=== PATIENT | female | born 1970 | race Caucasian/White ===

== ENCOUNTER 2016-06-05 13:39 | Emergency (ER) | payer OTHER ==
[~2016-06-05 13:39] MED LIST: ADVAIR 25028 BLISTE1 PO; ADVIL200 M3 PO; ALBUTEROL SULF8.5 G2 IH; ARIMIDEX1 M1 PO; AYR SALINE NASA14 GM; BENADRYL ITCH103 ML TOP; BENZONATATE200 M1 PO; BONIVA150 M1 PO; BUDESONIDE8.43 ML; CALCIPOTRIENE TOP; CALCIUM500 M3 PO; CEFPROZIL250 MG PO; CEPHALEXIN500 M1 PO; CIPRO750 M1 PO; CLEOCIN HCL300 M1 PO; CLINDAMYCIN HC150 M1 PO; CLINDAMYCIN HC300 M2 PO; CLOBETASOL PROP15 G2 TOP; CLOBETASOL PROP15 G2 TP; DOXEPIN HCL10 M1 PO; ELAVIL25 MG PO; HYDROCODON-ACE1 EAC8 PO; HYDROMORPHONE HC2 M1 PO; IBUPROFEN200 M2 PO; KEFLEX500 M4 PO; METRONIDAZOLE500 M3 PO; MUPIROCIN 2%; NORCO 5-325 TA1 EACH PO; OMEPRAZOLE MAGN20 M1 PO; OXYGEN INH; PAROEX473 ML MM; PERCOCET 5-3251 EACH PO; PREDNISONE20 MG PO; PROAIR HFA8.5 GM IH; PROAIR HFA8.5 GM INH; VALIUM10 M1 PO; VALIUM5 MG PO; VITAMIN D2; VITAMIN D31000 UNI3 PO; VITAMIN D31000 UNI4 PO; VITAMIN D400 UNI4 PO; ZITHROMAX250 M1 PO; ZOFRAN ODT4 MG/UDTAB PO; ZOFRAN ODT8 MG PO; [UNRECOGNIZED DRUG - OTHER]
[2016-06-05 14:39] LABS: BASO % 0.3 % (0-2); EOS % 4.7 % (0-7); EOSINOPHIL ABSOLUTE COUNT 0.6 tho/cmm (0.0-0.7); HCT-HEMATOCRIT 46.5 % (34.0-49.0); HGB-HEMOGLOBIN 15.7 gm/dl (12.0-15.5); IMMATURE GRANULOCYTES ABSOLUTE 0.03 tho/cmm (0-0.03); IMMATURE GRANULOCYTES PERCENT 0.3 % (0-0.3); LYMPH % 20.5 % (20-45); LYMPH ABSOLUTE COUNT 2.5 tho/cmm (0.8-4.5); MCH (MEAN CORPUSCULAR HGB) 32.2 pg (28.0-32.0); MCHC MEAN CORPUSCULAR HGB CONC 33.8 % (32.0-36.0); MCV (MEAN CELL VOLUME) 95.3 fl (82.0-96.0); MEAN PLATELET VOLUME 9.7 cmc (9.4-12.4); MONO % 8.7 % (0-12); NEUTROPHIL ABSOLUTE COUNT 7.8 tho/cmm (1.6-8.0); NEUTROPHIL-AUTOMATED 7.8 tho/cmm (1.6-8.0); NEUTROPHILS % 65.5 % (40-80); PLATELET COUNT 273 tho/cmm (150-450); RED BLOOD COUNT 4.88 mil/cmm (4.00-5.20); RED CELL DISTRIBUTION WIDTH 12.5 % (12.4-16.4); WHITE BLOOD COUNT 11.9 tho/cmm (4.0-10.0)
[2016-06-05 15:01] LABS: ALB/GLOB RATIO 0.7 (0.8-2.0); ALBUMIN 3.5 g/dl (3.5-5.0); ALKALINE PHOSPHATASE 178 U/L (33-138); ALT/SGPT 60 U/L (12-78); ANION GAP 11 mmol/L (0-20); AST/SGOT 21 U/L (10-40); BILIRUBIN,TOTAL 0.3 mg/dl (0-1.5); BLOOD UREA NITROGEN 7 mg/dl (6-24); CALCIUM 8.9 mg/dl (8.5-10.5); CARBON DIOXIDE-VENOUS 29 mmol/L (22-32); CHLORIDE 105 mmol/l (96-110); CREATININE 0.65 mg/dl (0.50-1.10); GLUCOSE 100 mg/dL (70-110); POTASSIUM 3.5 mmol/L (3.7-5.1); SODIUM 141 mmol/L (135-145); eGFR VALUE FOR BLACK >90 mL/Min
[2016-06-05 15:23] LABS: ESR-ERYTHROCYTE SED RATE 5 mm/hr (0-20)
[2016-06-05] MEDS ORDERED: PROMETHAZINE HC25 M3 PO (15:44)
[2016-06-10] MEDS ORDERED: ZOFRAN ODT4 MG SL (14:17)
[2016-07-11] MEDS ORDERED: CHEMOTHERAPY (17:42)
[2016-07-11] MEDS ORDERED: DOCUSATE SODIU100 M2 PO (17:43)
== END 2016-06-05 16:28 ==
LOC: EDMED 13:39
PROVIDERS: Emergency Medicine
DX: M54.9 Dorsalgia, unspecified (principal); R11.10 Vomiting, unspecified; R53.1 Weakness; R59.1 Generalized enlarged lymph nodes; J44.9 Chronic obstructive pulmonary disease, unspecified; J45.909 Unspecified asthma, uncomplicated; F17.200 Nicotine dependence, unspecified, uncomplicated; Z90.49 Acquired absence of other specified parts of digestive tract; Z90.710 Acquired absence of both cervix and uterus
CPT/HCPCS: J2550

== ENCOUNTER 2016-06-13 10:02 | Day surgery (SDC) | payer OTHER ==
[~2016-06-13 10:02] MED LIST changes: +PROMETHAZINE HC25 M3 PO; +ZOFRAN ODT4 MG SL
[2016-07-11] MEDS ORDERED: CHEMOTHERAPY (17:42)
[2016-07-11] MEDS ORDERED: DOCUSATE SODIU100 M2 PO (17:43)
== END 2016-06-13 14:05 ==
LOC: SRG 10:02 → SHSA 10:06 → ORW 12:06
PROC: 0JH60XZ Insertion of Tunneled Vascular Access Device into Chest Subcutaneous Tissue and Fascia, Open Approach (ICD-10-PCS; principal; 2016-06-13)
PROC: 05H633Z Insertion of Infusion Device into Left Subclavian Vein, Percutaneous Approach (ICD-10-PCS; 2016-06-13)
DX: C50.911 Malignant neoplasm of unspecified site of right female breast (principal); F41.9 Anxiety disorder, unspecified; L40.50 Arthropathic psoriasis, unspecified; K76.0 Fatty (change of) liver, not elsewhere classified; J44.9 Chronic obstructive pulmonary disease, unspecified; F17.210 Nicotine dependence, cigarettes, uncomplicated; Z88.0 Allergy status to penicillin; Z88.1 Allergy status to other antibiotic agents; Z88.2 Allergy status to sulfonamides; Z91.048 Other nonmedicinal substance allergy status; Z90.49 Acquired absence of other specified parts of digestive tract; Z90.710 Acquired absence of both cervix and uterus; Z79.899 Other long term (current) drug therapy; Z98.890 Other specified postprocedural states
CPT/HCPCS: C1788; J0690

== ENCOUNTER 2016-06-25 22:14 | Emergency (ER) | payer OTHER ==
[2016-06-25] MEDS ORDERED: ULTRAM50 M1 PO (22:40)
[2016-06-25] MEDS ORDERED: VALIUM10 M1 PO (22:40)
[2016-06-25] MEDS ORDERED: DEXAMETHASONE4 M1 PO (22:40)
[2016-06-25 23:25] LABS: BASO % 0.1 % (0-2); EOS % 0.3 % (0-7); HCT-HEMATOCRIT 40.4 % (34.0-49.0); HGB-HEMOGLOBIN 13.5 gm/dl (12.0-15.5); IMMATURE GRANULOCYTES ABSOLUTE 0.08 tho/cmm (0-0.03); IMMATURE GRANULOCYTES PERCENT 0.5 % (0-0.3); LYMPH % 17.3 % (20-45); LYMPH ABSOLUTE COUNT 2.5 tho/cmm (0.8-4.5); MCH (MEAN CORPUSCULAR HGB) 31.5 pg (28.0-32.0); MCHC MEAN CORPUSCULAR HGB CONC 33.4 % (32.0-36.0); MCV (MEAN CELL VOLUME) 94.4 fl (82.0-96.0); MEAN PLATELET VOLUME 9.7 cmc (9.4-12.4); MONO % 10.7 % (0-12); MONOCYTE ABSOLUTE COUNT 1.6 tho/cmm (0.0-1.2); NEUTROPHIL ABSOLUTE COUNT 10.4 tho/cmm (1.6-8.0); NEUTROPHIL-AUTOMATED 10.4 tho/cmm (1.6-8.0); NEUTROPHILS % 71.1 % (40-80); PLATELET COUNT 225 tho/cmm (150-450); RED BLOOD COUNT 4.28 mil/cmm (4.00-5.20); RED CELL DISTRIBUTION WIDTH 12.8 % (12.4-16.4); WHITE BLOOD COUNT 14.6 tho/cmm (4.0-10.0)
[2016-06-25 23:35] LABS: INR 1.1 INR (0.9-1.1); PROTHROMBIN TIME 12.4 SECONDS (9.0-13.6)
[2016-06-25 23:48] LABS: ALB/GLOB RATIO 0.7 (0.8-2.0); ALBUMIN 2.7 g/dl (3.5-5.0); ALKALINE PHOSPHATASE 141 U/L (33-138); ALT/SGPT 75 U/L (12-78); ANION GAP 12 mmol/L (0-20); AST/SGOT 22 U/L (10-40); BILIRUBIN,TOTAL 0.2 mg/dl (0-1.5); BLOOD UREA NITROGEN 14 mg/dl (6-24); CALCIUM 7.4 mg/dl (8.5-10.5); CARBON DIOXIDE-VENOUS 25 mmol/L (22-32); CHLORIDE 111 mmol/l (96-110); CREATININE 0.43 mg/dl (0.50-1.10); GLUCOSE 88 mg/dL (70-110); LIPASE 1105 U/L (73-393); POTASSIUM 3.1 mmol/L (3.7-5.1); SODIUM 145 mmol/L (135-145); eGFR VALUE FOR BLACK >90 mL/Min
[2016-06-26] MEDS ORDERED: CARAFATE1 G2 PO (00:17)
[2016-07-11] MEDS ORDERED: CHEMOTHERAPY (17:42)
[2016-07-11] MEDS ORDERED: DOCUSATE SODIU100 M2 PO (17:43)
== END 2016-06-26 00:29 ==
LOC: EDMED 22:14
PROVIDERS: Family Medicine
DX: K29.00 Acute gastritis without bleeding (principal); R74.8 Abnormal levels of other serum enzymes; C50.911 Malignant neoplasm of unspecified site of right female breast; E87.6 Hypokalemia; M19.90 Unspecified osteoarthritis, unspecified site; J45.909 Unspecified asthma, uncomplicated; F41.9 Anxiety disorder, unspecified; F17.210 Nicotine dependence, cigarettes, uncomplicated; Z90.49 Acquired absence of other specified parts of digestive tract; Z90.710 Acquired absence of both cervix and uterus
CPT/HCPCS: C9113

== ENCOUNTER 2016-07-07 10:51 | Emergency (ER) | payer OTHER ==
[~2016-07-07 10:51] MED LIST changes: +CARAFATE1 G2 PO; +DEXAMETHASONE4 M1 PO; +ULTRAM50 M1 PO
[2016-07-07] MEDS ORDERED: BONIVA150 M1 PO (11:09)
[2016-07-07] MEDS ORDERED: CALCIUM CARBON500 M2 PO (11:09)
[2016-07-07] MEDS ORDERED: PROAIR HFA8.5 GM INH (11:10)
[2016-07-07] MEDS ORDERED: CALCITRENE60 GM TP (11:11)
[2016-07-07] MEDS ORDERED: CLOBETASOL PROP15 G2 TP (11:11)
[2016-07-07 11:22] LABS: BASO % 0.1 % (0-2); EOS % 2.1 % (0-7); EOSINOPHIL ABSOLUTE COUNT 0.2 tho/cmm (0.0-0.7); HCT-HEMATOCRIT 44.7 % (34.0-49.0); HGB-HEMOGLOBIN 15.3 gm/dl (12.0-15.5); IMMATURE GRANULOCYTES ABSOLUTE 0.05 tho/cmm (0-0.03); IMMATURE GRANULOCYTES PERCENT 0.4 % (0-0.3); LYMPH % 10.2 % (20-45); LYMPH ABSOLUTE COUNT 1.2 tho/cmm (0.8-4.5); MCH (MEAN CORPUSCULAR HGB) 32.1 pg (28.0-32.0); MCHC MEAN CORPUSCULAR HGB CONC 34.2 % (32.0-36.0); MCV (MEAN CELL VOLUME) 93.9 fl (82.0-96.0); MEAN PLATELET VOLUME 9.2 cmc (9.4-12.4); MONO % 8.3 % (0-12); NEUTROPHIL ABSOLUTE COUNT 9.2 tho/cmm (1.6-8.0); NEUTROPHIL-AUTOMATED 9.2 tho/cmm (1.6-8.0); NEUTROPHILS % 78.9 % (40-80); PLATELET COUNT 193 tho/cmm (150-450); RED BLOOD COUNT 4.76 mil/cmm (4.00-5.20); RED CELL DISTRIBUTION WIDTH 12.9 % (12.4-16.4); WHITE BLOOD COUNT 11.6 tho/cmm (4.0-10.0)
[2016-07-07 11:36] LABS: ANION GAP 10 mmol/L (0-20); BLOOD UREA NITROGEN 9 mg/dl (6-24); CARBON DIOXIDE-VENOUS 24 mmol/L (22-32); CHLORIDE 110 mmol/l (96-110); CREATININE 0.51 mg/dl (0.50-1.10); GLUCOSE 118 mg/dL (70-110); SODIUM 140 mmol/L (135-145); eGFR VALUE FOR BLACK >90 mL/Min
[2016-07-07] MEDS ORDERED: DIFLUCAN100 M1 PO (12:17)
[2016-07-07] MEDS ORDERED: HYDROCODON-ACE1 EA16 PO (12:19)
[2016-07-07] MEDS ORDERED: OMEPRAZOLE20 M3 PO (12:19)
[2016-07-07] MEDS ORDERED: XGEVA120 MG/1.1 SC (12:20)
[2016-07-07] MEDS ORDERED: LUBRICANT EYE OP (12:21)
[2016-07-11] MEDS ORDERED: CHEMOTHERAPY (17:42)
[2016-07-11] MEDS ORDERED: DOCUSATE SODIU100 M2 PO (17:43)
== END 2016-07-07 14:02 ==
LOC: EDMED 10:51
PROVIDERS: Emergency Medicine
DX: J44.9 Chronic obstructive pulmonary disease, unspecified (principal); C50.919 Malignant neoplasm of unspecified site of unspecified female breast; Z79.899 Other long term (current) drug therapy; Z88.0 Allergy status to penicillin; Z88.8 Allergy status to other drugs, medicaments and biological substances; Z90.49 Acquired absence of other specified parts of digestive tract; Z90.710 Acquired absence of both cervix and uterus; F17.200 Nicotine dependence, unspecified, uncomplicated; Z79.51 Long term (current) use of inhaled steroids
CPT/HCPCS: Q9967

== ENCOUNTER 2016-07-12 11:39 | Day surgery (SDC) | payer OTHER ==
[~2016-07-12 11:39] MED LIST changes: +CALCITRENE60 GM TP; +CALCIUM CARBON500 M2 PO; +CHEMOTHERAPY; +DIFLUCAN100 M1 PO; +DOCUSATE SODIU100 M2 PO; +HYDROCODON-ACE1 EA16 PO; +LUBRICANT EYE OP; +OMEPRAZOLE20 M3 PO; +XGEVA120 MG/1.1 SC
== END 2016-07-12 13:45 ==
LOC: FLUORO 11:39 → SHSB 11:51
DX: C79.31 Secondary malignant neoplasm of brain (principal); C50.919 Malignant neoplasm of unspecified site of unspecified female breast; Z53.9 Procedure and treatment not carried out, unspecified reason

== ENCOUNTER 2016-07-13 17:24 | Emergency (ER) | payer OTHER ==
[2016-07-13 18:43] LABS: EOS % 0.8 % (0-7); EOSINOPHIL ABSOLUTE COUNT 0.1 tho/cmm (0.0-0.7); HCT-HEMATOCRIT 41.9 % (34.0-49.0); HGB-HEMOGLOBIN 14.5 gm/dl (12.0-15.5); IMMATURE GRANULOCYTES ABSOLUTE 0.02 tho/cmm (0-0.03); IMMATURE GRANULOCYTES PERCENT 0.2 % (0-0.3); LYMPH % 11.6 % (20-45); LYMPH ABSOLUTE COUNT 1.2 tho/cmm (0.8-4.5); MCH (MEAN CORPUSCULAR HGB) 31.9 pg (28.0-32.0); MCHC MEAN CORPUSCULAR HGB CONC 34.6 % (32.0-36.0); MCV (MEAN CELL VOLUME) 92.3 fl (82.0-96.0); MEAN PLATELET VOLUME 9.3 cmc (9.4-12.4); MONO % 6.2 % (0-12); MONOCYTE ABSOLUTE COUNT 0.7 tho/cmm (0.0-1.2); NEUTROPHIL ABSOLUTE COUNT 8.5 tho/cmm (1.6-8.0); NEUTROPHIL-AUTOMATED 8.5 tho/cmm (1.6-8.0); NEUTROPHILS % 81.2 % (40-80); PLATELET COUNT 150 tho/cmm (150-450); RED BLOOD COUNT 4.54 mil/cmm (4.00-5.20); RED CELL DISTRIBUTION WIDTH 13.1 % (12.4-16.4); WHITE BLOOD COUNT 10.4 tho/cmm (4.0-10.0)
[2016-07-13 18:52] LABS: ANION GAP 12 mmol/L (0-20); BLOOD UREA NITROGEN 11 mg/dl (6-24); CALCIUM 7.8 mg/dl (8.5-10.5); CARBON DIOXIDE-VENOUS 23 mmol/L (22-32); CHLORIDE 106 mmol/l (96-110); CREATININE 0.38 mg/dl (0.50-1.10); GLUCOSE 113 mg/dL (70-110); POTASSIUM 3.6 mmol/L (3.7-5.1); SODIUM 137 mmol/L (135-145); eGFR VALUE FOR BLACK >90 mL/Min
== END 2016-07-13 20:49 ==
LOC: EDMED 17:24
PROVIDERS: Emergency Medicine
DX: C50.919 Malignant neoplasm of unspecified site of unspecified female breast (principal); C79.31 Secondary malignant neoplasm of brain; Z79.899 Other long term (current) drug therapy; Z90.49 Acquired absence of other specified parts of digestive tract
CPT/HCPCS: J2405; J7030; Q9967

== ENCOUNTER 2016-07-20 21:14 | Emergency (ER) | payer OTHER | END 2016-07-20 22:39 | disposition T | LOC: EDMED 21:14 | DX: R42 Dizziness and giddiness (principal); R11.2 Nausea with vomiting, unspecified; Z85.3 Personal history of malignant neoplasm of breast; Z90.89 Acquired absence of other organs; Z90.710 Acquired absence of both cervix and uterus; F17.200 Nicotine dependence, unspecified, uncomplicated | CPT/HCPCS: J0780; J1200; J2060 ==

== ENCOUNTER 2016-07-25 08:18 | Emergency (ER) | payer OTHER ==
[2016-07-25] MEDS ORDERED: CHLORHEXIDINE473 M1 SSP (09:12)
== END 2016-07-25 09:34 ==
LOC: EDMED 08:18
DX: C50.919 Malignant neoplasm of unspecified site of unspecified female breast (principal); C79.31 Secondary malignant neoplasm of brain; C79.51 Secondary malignant neoplasm of bone; H53.8 Other visual disturbances; J44.9 Chronic obstructive pulmonary disease, unspecified; J45.909 Unspecified asthma, uncomplicated; Z79.51 Long term (current) use of inhaled steroids; Z79.899 Other long term (current) drug therapy